=== PATIENT | male | born 1935 | race Caucasian/White ===

== ENCOUNTER 2016-11-25 17:13 | Inpatient (IN) | payer MEDICARE, BC ==
[~2016-11-25] VITALS: Ht 165.1 cm; Wt 77.6 kg
[2016-11-25] MEDS ORDERED: SODIUM CHLORIDE 0.9% 1,000 ML IV ONE (17:27)
[2016-11-25 18:04] LABS: BASOPHILS % 0.4 % (0.0-2.0); EOSINOPHILS % 0.2 % (0.0-5.0); HEMATOCRIT. 31.9 % (42.0-52.0); HEMOGLOBIN. 10.6 g/dL (14.0-18.0); LYMPHOCYTES % 8.9 % (20.0-50.0); MEAN CORPUSCULAR HEMOGLOBIN 30.3 pg (28.0-32.0); MEAN CORPUSCULAR VOLUME 91.3 fL (80.0-94.0); MEAN PLATELET VOLUME 8.3 fl (7.4-10.4); MONOCYTES % 12.7 % (2.0-8.0); NEUTROPHILS % 77.8 % (40.0-76.0); PLATELET 191 x1000/uL (130-400); RED BLOOD CELL COUNT 3.49 mill/uL (4.7-6.1); RED CELL DISTRIBUTION WIDTH 14.8 % (11.6-14.6)
[2016-11-25 18:05] LABS: INR 1.1; PROTHROMBIN TIME 11.4 sec (9.4-11.6)
[2016-11-25 18:13] LABS: CARBON DIOXIDE 28 mEq/L (21-32); CHLORIDE 105 mEq/L (98-107); ETHANOL BLOOD < 10 mg/dL
[2016-11-25 18:18] LABS: TROPONIN I 0.07 ng/mL (0.00-0.04)
[2016-11-25 18:23] LABS: AMMONIA 11 uMol/L (<32)
[2016-11-25 18:31] LABS: CREATINE KINASE 4287 IU/L (39-308)
[2016-11-25] MEDS ORDERED: PIPERACILLIN/TAZ 3.375G PREMIX 50 ML IV ONE (19:00)
[2016-11-25] MEDS ORDERED: ONDANSETRON HCL 4MG/2ML VIAL IV PRN (19:30)
[2016-11-25] MEDS ORDERED: CLONIDINE 0.1MG TABLET PO PRN (19:30)
[2016-11-25] MEDS ORDERED: ACETAMINOPHEN 325MG TABLET PO PRN (19:30)
[2016-11-25] MEDS ORDERED: NA PHOS,M-B/NA PHOS,DI-BA ENEMA 118ML PR PRN (19:30)
[2016-11-25] MEDS ORDERED: NITROGLYCERIN 0.4MG TABLET SL SL PRN (19:30)
[2016-11-25] MEDS ORDERED: DOCUSATE SODIUM 100MG CAPSULE PO PRN (19:30)
[2016-11-25] MEDS ORDERED: MAGNESIUM/ALUMINUM HYDROXIDE/SIMETHICONE 30ML UDC PO PRN (19:30)
[2016-11-25] MEDS ORDERED: TRAMADOL 50MG TABLET PO PRN (19:30)
[2016-11-25 20:12] LABS: VITAMIN B12 SERUM 1087 pg/mL (211-911)
[2016-11-25] MEDS ORDERED: ZOLPIDEM TARTRATE 5MG TABLET PO PRN (20:30)
[2016-11-25 20:32] LABS: FOLIC ACID (FOLATE) SERUM > 20.00 ng/mL (>5.38)
[2016-11-25 21:38] LABS: CLARITY URINE CLOUDY (CLEAR); COLOR URINE YELLOW (YELLOW); GLUCOSE URINE NEGATIVE (NEGATIVE); KETONES URINE 1+ (NEGATIVE); LEUKOCYTE ESTERASE URINE NEGATIVE (NEGATIVE); NITRITE URINE NEGATIVE (NEGATIVE); OCCULT BLOOD URINE 2+ (NEGATIVE); PROTEIN URINE 1+ (NEGATIVE); SPECIFIC GRAVITY URINE 1.029 (1.005-1.030); UROBILINOGEN URINE 0.2 E.U./dL (0.2-1.0)
[2016-11-25 21:55] VITALS: BP 146/86
[2016-11-25 22:06] LABS: *AMPHETAMINES SCREEN URINE NEGATIVE (NEGATIVE); *BARBITURATES SCREEN URINE NEGATIVE (NEGATIVE); *BENZODIAZEPINES SCREEN URINE PRESUMTIVE POSITIVE (NEGATIVE); *COCAINE SCREEN URINE NEGATIVE (NEGATIVE); CANNABINOID URINE SCREEN NEGATIVE (NEGATIVE); METHADONE URINE SCREEN NEGATIVE (NEGATIVE); OPIATES URINE SCREEN PRESUMTIVE POSITIVE (NEGATIVE); PHENCYCLIDINE URINE SCREEN NEGATIVE (NEGATIVE)
[2016-11-25] MEDS: SODIUM CHLORIDE 0.9% 1,000 ML IV SCH (23:03)
[2016-11-26] VITALS: BP 122/76
[2016-11-26] MEDS ORDERED: LEVOFLOXACIN 500MG PREMIX 100 ML IV SCH
[2016-11-26 02:31] LABS: CREATINE KINASE MB FRACTION 24.2 ng/mL (0.5-3.6); TROPONIN I 0.07 ng/mL (0.00-0.04)
[2016-11-26 04:00] VITALS: BP 111/61
[2016-11-26 07:06] LABS: CREATINE KINASE MB FRACTION 21.1 ng/mL (0.5-3.6); TROPONIN I 0.07 ng/mL (0.00-0.04)
[2016-11-26 07:42] VITALS: BP 120/73
[2016-11-26] MEDS: FAMOTIDINE 20MG/2ML VIAL IV SCH ×2 (08:38→22:59)
[2016-11-26] MEDS: ASPIRIN 325MG EC TABLET PO SCH (08:38)
[2016-11-26] MEDS: ENOXAPARIN 40MG/0.4ML SYR SUBCUT SCH (08:40)
[2016-11-26] MEDS: SODIUM CHLORIDE 0.9% 1,000 ML IV SCH ×2 (08:47→22:59)
[2016-11-26] MEDS: IPRATROPIUM/ALBUTEROL 0.5-3(2.5)MG/3ML NEB INH PRN (11:02)
[2016-11-26 11:22] VITALS: BP 129/68
[2016-11-26] MEDS ORDERED: CEFTRIAXONE 1 G PREMIX 50 ML IV SCH (13:00)
[2016-11-26] MEDS ORDERED: VANCOMYCIN 1500MG in DEXTROSE 5% WATER 250ML IV SCH (13:00)
[2016-11-26 16:00] VITALS: BP 122/72
[2016-11-26 20:00] VITALS: BP 129/80
[2016-11-26] MEDS ORDERED: LEVOFLOXACIN 250MG PREMIX 50 ML IV SCH (21:00)
[2016-11-26] MEDS: GUAIFENESIN 200MG/10ML SUGAR FREE UDC PO PRN (22:59)
[2016-11-27] VITALS (7 sets, daily range): BP systolic 132–160; BP diastolic 70–93
[2016-11-27] MEDS: SODIUM CHLORIDE 0.9% 1,000 ML IV SCH ×2 (07:30→23:31)
[2016-11-27] MEDS: VANCOMYCIN 1 G PREMIX 200 ML IV SCH (07:30)
[2016-11-27] MEDS: FAMOTIDINE 20MG/2ML VIAL IV SCH ×2 (08:20→23:13)
[2016-11-27] MEDS: ASPIRIN 325MG EC TABLET PO SCH (08:20)
[2016-11-27] MEDS: ENOXAPARIN 40MG/0.4ML SYR SUBCUT SCH (08:21)
[2016-11-27] MEDS: IPRATROPIUM/ALBUTEROL 0.5-3(2.5)MG/3ML NEB INH PRN ×2 (08:40→15:50)
[2016-11-27] MEDS ORDERED: SODIUM CHLORIDE 0.45% 1,000 ML IV SCH (12:45)
[2016-11-27 13:50] LABS: HEMATOCRIT. 26.8 % (42.0-52.0); HEMOGLOBIN. 9.2 g/dL (14.0-18.0); MEAN CORPUSCULAR HEMOGLOBIN 31.4 pg (28.0-32.0); MEAN CORPUSCULAR VOLUME 91.5 fL (80.0-94.0); MEAN PLATELET VOLUME 8.4 fl (7.4-10.4); PLATELET 156 x1000/uL (130-400); RED BLOOD CELL COUNT 2.93 mill/uL (4.7-6.1); RED CELL DISTRIBUTION WIDTH 15.1 % (11.6-14.6)
[2016-11-27 14:25] LABS: CARBON DIOXIDE 27 mEq/L (21-32); CHLORIDE 109 mEq/L (98-107)
[2016-11-27 14:29] LABS: CREATINE KINASE 1132 IU/L (39-308)
[2016-11-27] MEDS ORDERED: HALOPERIDOL LACTATE 5MG/ML VIAL IM PRN (15:45)
[2016-11-27 23:08] LABS: PLATELET ESTIMATE NORMAL
[2016-11-27] MEDS: CEFTRIAXONE 2 G in DEXTROSE 5% WATER 50 ML IV SCH (23:13)
[2016-11-28] VITALS: BP 168/93
[2016-11-28] MEDS: VANCOMYCIN 1 G PREMIX 200 ML IV SCH (00:11)
[2016-11-28] MEDS: LORAZEPAM 2MG/ML CPJ IV PRN ×2 (01:49→15:19)
[2016-11-28 04:00] VITALS: BP 144/60
[2016-11-28 07:46] VITALS: BP 149/90
[2016-11-28 08:06] LABS: HEMATOCRIT. 26.5 % (42.0-52.0); HEMOGLOBIN. 8.8 g/dL (14.0-18.0); MEAN CORPUSCULAR HEMOGLOBIN 30.6 pg (28.0-32.0); MEAN CORPUSCULAR VOLUME 91.6 fL (80.0-94.0); MEAN PLATELET VOLUME 8.6 fl (7.4-10.4); PLATELET 155 x1000/uL (130-400); RED BLOOD CELL COUNT 2.89 mill/uL (4.7-6.1); RED CELL DISTRIBUTION WIDTH 14.8 % (11.6-14.6)
[2016-11-28 08:11] LABS: CARBON DIOXIDE 29 mEq/L (21-32); CHLORIDE 106 mEq/L (98-107); CREATINE KINASE MB FRACTION 5.4 ng/mL (0.5-3.6); LDL CHOLESTEROL 37 mg/dL (5-100); TROPONIN I 0.06 ng/mL (0.00-0.04)
[2016-11-28 08:24] LABS: CREATINE KINASE 1178 IU/L (39-308); HDL CHOLESTEROL 49 mg/dL (40-59)
[2016-11-28] MEDS: ASPIRIN 325MG EC TABLET PO SCH (09:00)
[2016-11-28] MEDS: FAMOTIDINE 20MG/2ML VIAL IV SCH ×2 (09:37→20:54)
[2016-11-28] MEDS: SODIUM CHLORIDE 0.9% 1,000 ML IV SCH ×2 (09:37→23:55)
[2016-11-28] MEDS: ENOXAPARIN 40MG/0.4ML SYR SUBCUT SCH (09:38)
[2016-11-28 11:03] LABS: PLATELET ESTIMATE NORMAL
[2016-11-28 12:00] VITALS: BP 150/82
[2016-11-28] MEDS: GUAIFENESIN 200MG/10ML SUGAR FREE UDC PO PRN (13:01)
[2016-11-28] MEDS: CEFTRIAXONE 2 G in DEXTROSE 5% WATER 50 ML IV SCH (13:01)
[2016-11-28] MEDS ORDERED: VANCOMYCIN 1 G PREMIX 200 ML IV SCH (14:00)
[2016-11-28] MEDS ORDERED: CLONIDINE 0.2MG TABLET PO SCH (14:15)
[2016-11-28] MEDS: AMLODIPINE 2.5MG TABLET PO SCH ×2 (14:59→21:01)
[2016-11-28 16:46] VITALS: BP 140/84
[2016-11-28 20:00] VITALS: BP 133/78
[2016-11-28] MEDS: CLONIDINE 0.1MG TABLET PO SCH (21:01)
[2016-11-29] VITALS: BP_SYST 149; BP_SYST 152; BP_DIAS 90; BP_DIAS 97
[2016-11-29 04:00] VITALS: BP 144/77
[2016-11-29] MEDS: VANCOMYCIN 1 G PREMIX 200 ML IV SCH ×2 (04:19→15:53)
[2016-11-29 07:52] LABS: HEMATOCRIT. 25.5 % (42.0-52.0); HEMOGLOBIN. 8.3 g/dL (14.0-18.0); MEAN CORPUSCULAR HEMOGLOBIN 29.7 pg (28.0-32.0); MEAN PLATELET VOLUME 8.4 fl (7.4-10.4); PLATELET 158 x1000/uL (130-400); RED BLOOD CELL COUNT 2.81 mill/uL (4.7-6.1); RED CELL DISTRIBUTION WIDTH 14.7 % (11.6-14.6)
[2016-11-29 08:00] VITALS: BP 146/83
[2016-11-29 08:09] LABS: CARBON DIOXIDE 32 mEq/L (21-32); CHLORIDE 105 mEq/L (98-107)
[2016-11-29] MEDS: THIAMINE HCL 100MG TABLET PO SCH (08:49)
[2016-11-29] MEDS: CLONIDINE 0.1MG TABLET PO SCH ×2 (08:49→21:12)
[2016-11-29] MEDS: FAMOTIDINE 20MG/2ML VIAL IV SCH ×2 (08:50→21:13)
[2016-11-29] MEDS: ENOXAPARIN 40MG/0.4ML SYR SUBCUT SCH (08:50)
[2016-11-29] MEDS: ASPIRIN 325MG EC TABLET PO SCH (08:50)
[2016-11-29] MEDS: AMLODIPINE 2.5MG TABLET PO SCH ×2 (08:50→21:12)
[2016-11-29 12:00] VITALS: BP 128/80
[2016-11-29] MEDS: SODIUM CHLORIDE 0.9% 1,000 ML IV SCH (15:00)
[2016-11-29 16:00] VITALS: BP 146/95
[2016-11-29 20:00] VITALS: BP 141/83
[2016-11-29 20:10] LABS: PLATELET ESTIMATE NORMAL
[2016-11-30] VITALS: BP 143/83
[2016-11-30] MEDS: VANCOMYCIN 1 G PREMIX 200 ML IV SCH ×2 (03:58→16:02)
[2016-11-30 04:00] VITALS: BP 137/83
[2016-11-30] MEDS: SODIUM CHLORIDE 0.9% 1,000 ML IV SCH ×3 (04:05→20:59)
[2016-11-30] MEDS: LORAZEPAM 2MG/ML CPJ IV PRN (07:08)
[2016-11-30 08:00] VITALS: BP_SYST 144; BP_SYST 149; BP_DIAS 92; BP_DIAS 94
[2016-11-30] MEDS: ENOXAPARIN 40MG/0.4ML SYR SUBCUT SCH (09:32)
[2016-11-30] MEDS: FAMOTIDINE 20MG/2ML VIAL IV SCH ×2 (09:32→20:59)
[2016-11-30] MEDS: CLONIDINE 0.1MG TABLET PO SCH ×2 (09:33→20:58)
[2016-11-30] MEDS: AMLODIPINE 2.5MG TABLET PO SCH ×2 (09:33→20:59)
[2016-11-30] MEDS: ASPIRIN 325MG EC TABLET PO SCH (09:33)
[2016-11-30] MEDS: THIAMINE HCL 100MG TABLET PO SCH (09:33)
[2016-11-30] MEDS ORDERED: THIAMINE HCL 100MG TABLET PO SCH (09:45)
[2016-11-30 10:39] LABS: BASOPHILS % 0.6 % (0.0-2.0); EOSINOPHILS % 1.7 % (0.0-5.0); HEMATOCRIT. 27.8 % (42.0-52.0); HEMOGLOBIN. 9.4 g/dL (14.0-18.0); MEAN CORPUSCULAR HEMOGLOBIN 30.6 pg (28.0-32.0); MEAN CORPUSCULAR VOLUME 90.8 fL (80.0-94.0); MEAN PLATELET VOLUME 8.1 fl (7.4-10.4); MONOCYTES % 14.7 % (2.0-8.0); PLATELET 174 x1000/uL (130-400); RED BLOOD CELL COUNT 3.06 mill/uL (4.7-6.1); RED CELL DISTRIBUTION WIDTH 14.6 % (11.6-14.6)
[2016-11-30 10:45] LABS: CARBON DIOXIDE 31 mEq/L (21-32); CHLORIDE 103 mEq/L (98-107)
[2016-11-30 12:00] VITALS: BP 128/90
[2016-11-30 16:00] VITALS: BP 120/84
[2016-11-30] MEDS: MULTIVITAMINS,THER W-MINERALS TABLET PO SCH (16:02)
[2016-11-30] MEDS: FOLIC ACID 1MG TABLET PO SCH (16:02)
[2016-11-30 20:00] VITALS: BP 159/101
[2016-11-30] MEDS: CHLORDIAZEPOXIDE 5 MG CAPSULE PO SCH (20:59)
[2016-12-01] VITALS (8 sets, daily range): BP systolic 134–152; BP diastolic 70–90
[2016-12-01] MEDS: VANCOMYCIN 1 G PREMIX 200 ML IV SCH ×2 (03:09→14:47)
[2016-12-01] MEDS: CHLORDIAZEPOXIDE 5 MG CAPSULE PO SCH ×2 (06:23→14:47)
[2016-12-01] MEDS: SODIUM CHLORIDE 0.9% 1,000 ML IV SCH (06:45)
[2016-12-01] MEDS: ENOXAPARIN 40MG/0.4ML SYR SUBCUT SCH (10:05)
[2016-12-01] MEDS: THIAMINE HCL 100MG TABLET PO SCH (10:06)
[2016-12-01] MEDS: FAMOTIDINE 20MG/2ML VIAL IV SCH (10:06)
[2016-12-01] MEDS: MULTIVITAMINS,THER W-MINERALS TABLET PO SCH (10:06)
[2016-12-01] MEDS: ASPIRIN 325MG EC TABLET PO SCH (10:06)
[2016-12-01] MEDS: CLONIDINE 0.1MG TABLET PO SCH (10:07)
[2016-12-01] MEDS: FOLIC ACID 1MG TABLET PO SCH (10:08)
[2016-12-01] MEDS: AMLODIPINE 2.5MG TABLET PO SCH (10:09)
[2016-12-01] MEDS: IPRATROPIUM/ALBUTEROL 0.5-3(2.5)MG/3ML NEB INH PRN (10:25)
[2016-12-01] MEDS ORDERED: IPRATROPIUM/ALBUTEROL 0.5-3(2.5)MG/3ML NEB HHN PRN (12:00)
[2016-12-01] MEDS: IPRATROPIUM/ALBUTEROL 0.5-3(2.5)MG/3ML NEB HHN SCH ×2 (15:24→19:52)
== END 2016-12-01 22:55 | DRG 871 ==
LOC: ER 17:20 → 6WST 19:06 → EDBEDREQ 19:07 → EDBEDREQTM 19:07 → SUPCPDRO 19:20 → ENRESERV 20:13 → UNDODISIN 12-01 15:25
PROVIDERS: ADMIT Internal Medicine; ATTEND Internal Medicine
DX: A41.1 Sepsis due to other specified staphylococcus (principal); G92 Toxic encephalopathy; M62.82 Rhabdomyolysis; I27.20 Pulmonary hypertension, unspecified; A40.8 Other streptococcal sepsis; Z78.1 Physical restraint status; I11.9 Hypertensive heart disease without heart failure; D50.9 Iron deficiency anemia, unspecified; E78.00 Pure hypercholesterolemia, unspecified; I34.0 Nonrheumatic mitral (valve) insufficiency; Y93.K1 Activity, walking an animal
CPT/HCPCS: 36415; 70450; 71010; 80053; 80061; 80202; 80305; 81001; 82140; 82550; 82553; 82607; 82746; 82962; 83036; 83540; 83550; 83605; 83735; 84443; 84484; 85025; 85379; 85610; 85651; 86140; 87040; 87086; 93005; 93306; 93970; 94640; 94664; 96361; 96365; 96366; 97110; 97112; 97116; 97162; 97166; 97530; 97535; 99285; C1893; G0482; J0696; J1630; J1650; J1956; J2060; J2543; J3370; J3490; J7030; J7060; J7620